=== PATIENT | female | born 1995 | race Caucasian/White ===

== ENCOUNTER 2017-11-14 22:10 | Emergency (ER) | payer OTHER ==
[2017-11-14 22:32] LABS: BASOPHILS % 0.3 (0.0-1.5); EOSINOPHILS % 1.5 % (0.0-6.8); MEAN CORPUSCULAR HEMOGLOBIN 31.6 pg (28.0-34.0); MEAN CORPUSCULAR VOLUME 90.6 fl (80.0-100.0); NEUTROPHILS # 8.9 # k/uL (1.4-7.7)
[2017-11-14 22:49] LABS: eGFR (African) > 60; eGFR (Non-African) > 60
--- NOTE | 2017-11-14 22:49 | ED Physician Documentation ---
Female Urogenital Problems - HISTORIAN Historian: patient - HPI Stated Complaint: ABD PAIN Chief Complaint: Abdominal Pain Additional Information: Patient states that she has had a miscarriage about 6 months ago. Has not had a menstrual period since that time. Has not been using any form of contraception. Patient started to have some vaginal bleeding today which was heavy. Patient denies that she is having no urinary problems. Is having some suprapubic discomfort. No abnormal vaginal discharge. Further Comments: yes - Vaginal Bleeding : 1 Para: 0 : 1 Description of Menstrual: missed period(s) Sexual History: active Contraceptive: none - Associated Symptoms Urinary Symptoms: none Discharge: denies: vaginal discharge, vaginal fluid leakage - ROS CONST: none CVS/RESP: none. denies: chest pain, shortness of breath NEURO/PSYCH: denies: headache, fainting, dizzy - PAST HX Past History: other (PTSD) Other History: none Surgeries/Procedures: none Allergies/Adverse Reactions: Allergies Allergy/AdvReac Type Severity Reaction Status Date / Time No Known Allergies Allergy Verified 11/14/17 22:35 Home Medications: Ambulatory Orders Medication Instructions Recorded Norethindrone-Ethinyl Estrad 1 each PO DIRECTED #28 tablet 11/15/17 [[facility]] - SOCIAL HX Smoking History: non-smoker Alcohol Use: none Drug Use: none - FAMILY HX Family History: none - VITAL SIGNS Vital Signs: Vital Signs Temp Pulse Resp BP Pulse Ox 98.5 F 66 24 128/81 99 11/14/17 22:26 11/14/17 22:26 11/14/17 22:26 11/14/17 22:26 11/14/17 22:26 - REVIEWED ASSESSMENTS Nursing Assessment Reviewed: Yes Vitals Reviewed: Yes Progress - Progress Progress: patient advised of [facility] on [facility] in [place] that is open 24 hours. Watch for orthostatic changes. If nay problems to return or see reporting coordinator. I conferred with reporting coordinator at [facility] about treatment plan. ED Results Lab/Radiology - Lab Results Lab Results: Lab Results 11/14/17 22:26 WBC 11.00 K/ul K/ul (4.00-12.00) RBC 3.71 M/ul L M/ul (3.90-5.20) Hgb 11.7 g/dL L g/dL (12.0-16.0) Hct 33.6 % L % (34.5-46.5) MCV 90.6 fl fl (80.0-100.0) MCH 31.6 pg pg (28.0-34.0) MCHC 34.9 g/dL g/dL (30.0-36.0) RDW 12.2 % % (11.3-14.3) Plt Count 172 K/mm3 K/mm3 (130-400) Neut % (Auto) 81.3 % H % (39.0-79.0) Lymph % (Auto) 13.1 % L % (16.0-50.0) [place] % (Auto) 3.0 % % (0.0-11.0) Eos % (Auto) 1.5 % % (0.0-6.8) Baso % (Auto) 0.3 (0.0-1.5) Neut # (Auto) 8.9 # k/uL H # k/uL (1.4-7.7) Lymph # (Auto) 1.4 # k/uL # k/uL (0.6-4.0) [place] # (Auto) 0.3 # k/uL # k/uL (0.0-0.9) Eos # (Auto) 0.2 # k/uL # k/uL (0.0-0.6) Baso # (Auto) 0.0 # k/uL # k/uL (0.0-0.5) Reactive Lymphs % 0.9 % % (0.0-5.0) Reactive Lymphs # 0.1 # k/uL # k/uL (0.0-0.8) - Orders Orders: ED Orders Category Date Time Status CBC/PLATELET/DIFF Routine Lab 11/14/17 22:26 Completed CMP Routine Lab 11/14/17 22:26 Received SERUM HCG Routine Lab 11/14/17 22:26 Received URINALYSIS Routine Lab 11/14/17 Uncollected Female Urogenital Problems - EXAM General Appearance: alert, moderate distress Neck: nml inspection Respiratory: no resp. distress, breath sounds nml. No: wheezes, rales, rhonchi CVS: reg rate & rhythm, heart sounds normal, equal pulses Abdomen: soft, non-tender ([place]), no organomegaly ( also to), no distention (I would planning meeting sleep by the time night), tenderness (diffuse in all 4 quadrants) Pelvic: external exam nml, active bleeding, moderate, blood in vaginal vault, blood clots in vault, enlarged uterus (slight uterine enlargement), other (mild tenderness to palpation). No: cerv.motion tenderness, cervical dilation, adnexal tenderness (R), adnexal tenderness (L) Back: non-tender Skin: color nml, no rash, warm,dry Extremities: non-tender, normal range of motion Neuro: oriented X3, mood/affect nml, cognition normal (Domi always father) Discharge Clincal Impression: Anovulatory (dysfunctional uterine) bleeding Prescriptions: Norethindrone-Ethinyl Estrad [[facility]] 1 each PO DIRECTED #28 tablet Referrals: Primary Doctor,No [Primary Care Provider] - 2 Days Additional Instructions: Take control pill as directed. drink a lot of fluids. If you continue to have a lot of bleeding to return or see a reporting coordinator. Drink a lot of fluids. Take Ibuprofen 200mg tablets 2-3 tablets every 6 hours as needed for pain. Condition: Stable Disposition: 01 HOME, SELF-CARE Decision to Admit: NO Date of Decison to Admit: 11/15/17 Decision Time: 00:31
[2017-11-14] MEDS: KETOROLAC TROMETHAMINE 30 MG/1ML VIAL IVP ONE (22:55)
[2017-11-14] MEDS: KETOROLAC TROMETHAMINE 30 MG/1ML VIAL ONE (23:06)
[2017-11-14] MEDS: KETOROLAC TROMETHAMINE 60 MG/2 ML VIAL IM ONE (23:11)
[2017-11-14] MEDS ORDERED: 0.9 % SODIUM CHLORIDE 1,000 ML IV ONE (23:23)
[2017-11-14] MEDS: 0.9 % SODIUM CHLORIDE 1,000 ML IV SCH (23:30)
[2017-11-15 04:13] VITALS: BP 108/70
== END 2017-11-15 00:37 | disposition home or self-care (01) ==
LOC: ED 22:10
DX: N93.8 Other specified abnormal uterine and vaginal bleeding (principal)
CPT/HCPCS: 80053; 84703; 85025; J1885; J7030; 96374; 99283